=== PATIENT | male | born 1940 | race Caucasian/White ===

== ENCOUNTER 2016-11-19 07:40 | Emergency (ER) | payer OTHER ==
[~2016-11-19] VITALS: Ht 188 cm; Wt 106.7 kg
[~2016-11-19 07:40] MED LIST: AMIO200 PO; ASPI81 PO; CALC625 PO; DIFFCHW PO; LEVEMIR SQ; MULTTAB62 PO; NIAC250C6 PO; NOVOINJ3 SQ; PROS5TAB2 PO; PROT40TA PO; SIMV20 PO; SPIR25TA PO; TUMS500C PO; WARF2.5T40 PO; WARF5TAB PO; [UNRECOGNIZED DRUG - CODE] PO
[2016-11-19 07:42] VITALS: BP 147/70; PULSE 78; RESP 18; TEMP 98.1; O2SAT 97
[2016-11-19] MEDS ORDERED: CEPH-460 PO (08:00)
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
[2016-11-19] MEDS ORDERED: METO50TA11 PO (08:07)
[2016-11-19] MEDS ORDERED: SIMV20TA PO (08:07)
[2016-11-19] MEDS ORDERED: ASPI-110 PO (08:07)
[2016-11-19] MEDS ORDERED: PROS5TAB PO (08:07)
[2016-11-19] MEDS ORDERED: NOVORP2 SQ (08:07)
[2016-11-19] MEDS ORDERED: NOVONP2 SQ (08:07)
[2016-11-19] MEDS ORDERED: WARF-23 PO (08:07)
[2016-11-19] MEDS ORDERED: WARF-18 PO (08:07)
[2016-11-19] MEDS ORDERED: FISH1000 PO (08:07)
[2016-11-19] MEDS ORDERED: LISI2.5T3 PO (08:07)
[2016-11-19] MEDS ORDERED: GLIM4TAB PO (08:07)
== END 2016-11-19 08:19 | disposition home or self-care (01) ==
LOC: PHED 07:40
DX: S50.811A Abrasion of right forearm, initial encounter (principal); V49.49XA Driver injured in collision with other motor vehicles in traffic accident, initial encounter
CPT/HCPCS: 99282

== ENCOUNTER → 2017-08-01 | Outpatient (CLI) | payer OTHER ==
[~2017-08-01] VITALS: Ht 185.4 cm; Wt 174.0 kg
[~2017-08-01] MED LIST changes: -AMIO200 PO; +ASPI1TAB57 PO; -ASPI81 PO; -CALC625 PO; +CEPH-460 PO; +CHLORHEXIDINE GLUCONATE 2 % 1 PACK (2 CLOTHS) TOPICAL PRN; -DIFFCHW PO; +FISH1000 PO; +GLIM4TAB PO; +INSULIN HUMAN REGULAR 1,000 UNITS/10 ML VIAL SQ PRN; +LACTATED RINGER'S 1000 ML IV PRN; -LEVEMIR SQ; +LIDOCAINE HCL 1% PF 5 ML SYRINGE OTHER ONE; +LISI2.5T3 PO; +METO1TAB9 PO; +METOPROLOL TARTRATE 25 MG TAB PO PRN; -MULTTAB62 PO; -NIAC250C6 PO; -NOVOINJ3 SQ; +NOVONP2 SQ; +NOVORP2 SQ; +PHENYLEPH/NS 1000 MCG/10 ML SYR IV ONE; +POVIDONE IODINE 5% (ANTISEPSIS KIT) 4 APPLICATIONS EACH NARE PRN; +PROPOFOL 200 MG/20 ML AMP IV ONE; +PROS5TAB PO; -PROS5TAB2 PO; -PROT40TA PO; -SIMV20 PO; +SIMV20TA PO; +SODIUM CHLORID 0.9% 500 ML IV PRN; -SPIR25TA PO; -TUMS500C PO; +WARF-18 PO; +WARF-23 PO; -WARF2.5T40 PO; -WARF5TAB PO; -[UNRECOGNIZED DRUG - CODE] PO
--- NOTE | 2017-08-01 10:51 | PD.PROCEDR ---
GI Procedure PROCEDURE PERFORMED EGD with biopsy followed by colonoscopy INDICATION FOR PROCEDURE Guaiac positive stools PROCEDURE: The procedure, risks and benefits were discussed with Mr. Iglesias and informed consent was obtained. Anesthesia sedated him with Diprivan. He was placed in the left lateral decubitus position. EGD: The Pentax videoscope was introduced through the oropharynx and advanced to the second portion of the duodenum under direct visualization. Retroflexion was performed in the stomach. FINDINGS: The esophagus this was unremarkable and within normal limits The stomach there was patchy erythema noted in the fundus and the antrum superficial erosions noted in the fundus area with some heme noted biopsies were taken from the antrum for further evaluation The duodenum this was normal random biopsies were taken to rule out celiac as a cause for anemia Colonoscopy: The Pentax videoscope was introduced through the rectum and advanced to cecum where the ileocecal valve and appendiceal orifice were identified. Retroflexion was performed in the rectum. Colonic prep was good FINDINGS: Colonic withdrawal time greater than 6 minutes as the scope was slowly withdrawn colonic mucosa was carefully inspected the patient was noted to have a normal colonoscopy all the way through so as retroflexion and rectal examination ESTIMATED BLOOD LOSS: None SPECIMENS REMOVED: Gastric and duodenal biopsies COMPLICATIONS: None IMPRESSION: Gastritis Unremarkable colonoscopy PLAN: Await biopsies Follow-up in clinic in 3 weeks Colonoscopy in 10 years Miguelangel Soliz MD Aug 01, 2017 10:51
[2017-08-01 11:10] VITALS: BP 114/59; PULSE 90; RESP 16; TEMP 98.2; O2SAT 100
--- NOTE | 2017-08-02 09:38 | EKG ---
Date Performed: 08/01/2017 Time Performed: 08:24:33 PTAGE: 77 years EKG: Sinus rhythm WITH FIRST DEGREE AV BLOCK WITH OCCASIONAL SUPRAVENTRICULAR PREMATURE COMPLEXES RIGHT BUNDLE BRANCH BLOCK ABNORMAL ECG Since the prior tracing, there has been no significant change PREVIOUS TRACING : 03/31/2014 03.34 DOCTOR: Ashutosh Bruner Interpretating Date/Time 08/02/2017 09:36:31
== END ==
LOC: HSDC 07:25
PROVIDERS: ATTEND Internal Medicine Gastroenterology
DX: K92.1 Melena (principal); K29.70 Gastritis, unspecified, without bleeding; I44.0 Atrioventricular block, first degree; I45.10 Unspecified right bundle-branch block; K31.89 Other diseases of stomach and duodenum
CPT/HCPCS: 00813; 43239; 45378; 88305; 93005; J2370

== ENCOUNTER 2017-08-03 15:48 | Emergency (ER) | payer OTHER ==
[~2017-08-03] VITALS: Ht 185.4 cm; Wt 105.9 kg
[~2017-08-03 15:48] MED LIST changes: -CEPH-460 PO; -CHLORHEXIDINE GLUCONATE 2 % 1 PACK (2 CLOTHS) TOPICAL PRN; -INSULIN HUMAN REGULAR 1,000 UNITS/10 ML VIAL SQ PRN; -LACTATED RINGER'S 1000 ML IV PRN; -LIDOCAINE HCL 1% PF 5 ML SYRINGE OTHER ONE; -METOPROLOL TARTRATE 25 MG TAB PO PRN; -PHENYLEPH/NS 1000 MCG/10 ML SYR IV ONE; -POVIDONE IODINE 5% (ANTISEPSIS KIT) 4 APPLICATIONS EACH NARE PRN; -PROPOFOL 200 MG/20 ML AMP IV ONE; -SODIUM CHLORID 0.9% 500 ML IV PRN
[2017-08-03 15:52] VITALS: BP 125/62; PULSE 103; RESP 16; TEMP 99.2; O2SAT 96
[2017-08-03] MEDS ORDERED: SODIUM CHLORIDE 0.9% FLUSH 10 ML FLUSH IV FLUSH PRN (16:15)
--- NOTE | 2017-08-03 16:16 | PD ---
HPI Chief Complaint: Skin Problem Time Seen by Provider: 16:02 Travel History International Travel<30 days: No Contact w/Intl Traveler<30days: No Traveled to known affect area: No History of Present Illness HPI Patient is a 77-year-old male with a history of DVT on Coumadin presents emergency department for evaluation of redness and swelling to his left lower extremity. Patient states that his skin color is usually dark but has now has superimposed redness for the past few days. He is a diabetic and has peripheral neuropathy but denies any pain. Patient also has a callus on his left great toe which she states been there for a while and he is following with a behavioral therapist at the [facility]. He denies any trauma states his been taking his medications as prescribed, denies any shortness of breath. States symptoms for the past few days, gradually worsening, associated signs and symptoms and contacts as above. PFSH Past Medical History Hx Anticoagulant Therapy: Yes Arthritis: Yes Blood Disorders: No Cancer: No Cardiovascular Problems: Yes (PACER/DEFIB) High Cholesterol: Yes Diabetes: Yes Patient Takes Glucophage: No Diminished Hearing: Yes ([place] BILAT) Deep Vein Thrombosis: Yes Endocrine: Yes Gastrointestinal Disorders: Yes (BLOOD IN STOOL) Glaucoma: No Genitourinary: No Hepatitis: No Hiatal Hernia: No Hypertension: Yes Immune Disorder: No Implanted Vascular Access Dvce: Yes Musculoskeletal: Yes (OA) Neurologic: No Psychiatric: No Reproductive: No Respiratory: No Myocardial Infarction: No Thyroid Disease: No Tetanus Vaccination: > 5 Years Influenza Vaccination: Yes Past Surgical History Abdominal Surgery: Yes (REPAIR UMBILICAL HERNIA WITH MESH) AICD: No Body Medical Devices: PLATE AND SCREWS LEFT ANKLE; MESH UMBILICAL HERNIA Cardiac Surgery: Yes (PM/defib.) Ear Surgery: No Endocrine Surgery: No Eye Surgery: Yes (ANNETTE. CATARACT EXTRACT.) Genitourinary Surgery: No Joint Replacement: Yes (LEFT KNEE) Oral Surgery: No Pacemaker: No Thoracic Surgery: No Other Surgery: Yes (ABCESS REMOVAL IN BUTTOCKS/SCROTUM AREA) Social History Alcohol Use: No Tobacco Use: No (QUIT IN 1961) Substance Use: No Allergies-Medications (Allergen,Severity, Reaction): Coded Allergies: No Known Allergies (Unverified , 08/03/17) Reported Meds & Prescriptions Reported Meds & Active Scripts Active Keflex (Cephalexin) 500 Mg Capsule 500 Mg PO Q6H 7 Days Reported Warfarin 5 Mg Tab 5 Mg PO SA,HUGHES, T, TH Warfarin 2.5 Mg Tab 2.5 Mg PO M,W,F Fish Oil (Malcolm-3 Fatty Acids) 1,000 Mg Cap 1 Tab PO DAILY Glimepiride 4 Mg Tab 4 Mg PO DAILY Take with breakfast or first main meal Lisinopril 2.5 Mg Tab 2.5 Mg PO DAILY Proscar (Finasteride) 5 Mg Tab 5 Mg PO DAILY Do not crush. Metoprolol Succinate ER 24 HR (Metoprolol Succinate) 50 Mg Tab 50 Mg PO DAILY Aspirin 81 (Aspirin) 81 Mg Tabdr 81 Mg PO DAILY Novolin R Inj (Insulin Human Regular) 1,000 Unit/10 Ml Vial 5-25 Units SQ ACHS Max dose at bedtime:( )units; sugars less than 70,(0) units; sugars 150-199,(5)unit; sugars 200-249,(10)units; sugars 250-299,(15) units; sugars 300-349,(20)units; sugars greater than 349,(25)units Novolin N Inj (Insulin Human NPH) 1,000 Unit/10 Ml Vial 35 Units SQ BID Simvastatin 20 Mg Tab 20 Mg PO DAILY Review of Systems Except as stated in HPI: all other systems reviewed are Neg Physical Exam Narrative GENERAL: Well-developed well-nourished, no obvious distress. Quite pleasant. SKIN: Focused skin assessment warm/dry. There is a fair amount of swelling and erythema to left lower extremity over the anterior tibia nearly circumferential. Difficult to completely ascertain where the cellulitis borders are as the patient does have some underlying darkening skin likely from chronic venous stasis. HEAD: Atraumatic. Normocephalic. EYES: Pupils equal and round. No scleral icterus. No injection or drainage. ENT: No nasal bleeding or discharge. Mucous membranes pink and moist. NECK: Trachea midline. No JVD. CARDIOVASCULAR: Regular rate and rhythm. No murmur appreciated. 2+ bilateral equal pulses felt in all 4 extremities. Pulses are equal in the DP and PT bilateral lower extremities. Signs of adequate perfusion RESPIRATORY: No accessory muscle use. Clear to auscultation. Breath sounds equal bilaterally. GASTROINTESTINAL: Abdomen soft, non-tender, nondistended. Hepatic and splenic margins not palpable. MUSCULOSKELETAL: No obvious deformities. No clubbing. No cyanosis. No edema. NEUROLOGICAL: Awake and alert. No obvious cranial nerve deficits. Motor grossly within normal limits. Normal speech. PSYCHIATRIC: Appropriate mood and affect; insight and judgment normal. Data Data Last Documented VS Vital Signs Date Time Temp Pulse Resp B/P (MAP) Pulse Ox O2 Delivery O2 Flow Rate FiO2 08/03/17 18:45 08/03/17 18:20 82 18 98 Room Air 08/03/17 15:52 99.2 Orders Orders Basic Metabolic Panel (Bmp) (08/03/17 16:15) Complete Blood Count With Diff (08/03/17 16:15) Prothrombin Time / Inr (Pt) (08/03/17 16:15) Act Partial Throm Time (Ptt) (08/03/17 16:15) Iv Access Insert/Monitor (08/03/17 16:15) Ecg Monitoring (08/03/17 16:15) Oximetry (08/03/17 16:15) Sodium Chloride 0.9% Flush (Ns Flush) (08/03/17 16:15) Us Leg Venous Doppler (08/03/17 16:15) Ed Discharge Order (08/03/17 18:36) Labs Laboratory Tests Test 08/03/17 16:38 White Blood Count 9.2 TH/MM3 Red Blood Count 3.74 MIL/MM3 Hemoglobin 11.5 GM/DL Hematocrit 34.8 % Mean Corpuscular Volume 92.9 FL Mean Corpuscular Hemoglobin 30.6 PG Mean Corpuscular Hemoglobin Concent 33.0 % Red Cell Distribution Width 12.1 % Platelet Count 180 TH/MM3 Mean Platelet Volume 7.4 FL Neutrophils (%) (Auto) 74.2 % Lymphocytes (%) (Auto) 15.4 % Monocytes (%) (Auto) 7.6 % Eosinophils (%) (Auto) 2.5 % Basophils (%) (Auto) 0.3 % Neutrophils # (Auto) 6.9 TH/MM3 Lymphocytes # (Auto) 1.4 TH/MM3 Monocytes # (Auto) 0.7 TH/MM3 Eosinophils # (Auto) 0.2 TH/MM3 Basophils # (Auto) 0.0 TH/MM3 CBC Comment DIFF FINAL Differential Comment Prothrombin Time 13.7 SEC Prothromb Time International Ratio 1.4 RATIO Activated Partial Thromboplast Time 31.3 SEC Blood Urea Nitrogen 31 MG/DL Creatinine 2.00 MG/DL Random Glucose 384 MG/DL Calcium Level 8.4 MG/DL Sodium Level 131 MEQ/L Potassium Level 4.7 MEQ/L Chloride Level 97 MEQ/L Carbon Dioxide Level 25.7 MEQ/L Anion Gap 8 MEQ/L Estimat Glomerular Filtration Rate 32 ML/MIN MDM Medical Decision Making Medical Screen Exam Complete: Yes Emergency Medical Condition: Yes Differential Diagnosis DVT, cellulitis, sepsis unlikely, osteomyelitis sick highly unlikely. Narrative Course Patient was roomed in the emergency department, he appears well and in no obvious distress, basic labs are reassuring. On further history the patient recently stopped his Coumadin to have a colonoscopy, this was resumed 2 days ago. He is subtherapeutic on his Coumadin his INR is only 1.4. I think that there is some chronic venous stasis here with superimposed cellulitis which is fairly mild. Patient had an ultrasound of his lower extremity which does show superficial thrombosis without any DVT. At this time I think the patient should continue his Coumadin as previously prescribed and should have a repeat INR within the next few days. Discussed that if he is continue to have swelling in a week that he should have a repeat ultrasound to exclude propagation of his DVT. Any shortness of breath should prompt return to the ER. Discussed that he should follow-up with Dr. Stock Sunday morning in 2 days at least by phone. He verbalized understanding and agreement. Will place on empiric antibiotics. He is stable for discharge Diagnosis Primary Impression: Superficial thrombosis of leg Qualified Codes: I82.812 - Embolism and thrombosis of superficial veins of left lower extremity Additional Instructions: Take your Coumadin as previously prescribed, call Dr. Stock's office on Sunday. If you have increased swelling or any shortness of breath return to the emergency department immediately. I also recommend that you have a repeat ultrasound in 1 week. This is to ensure that the blood clot has not spread. Med/Other Pt SpecificInfo: Prescription(s) given Scripts Cephalexin (Keflex) 500 Mg Capsule 500 MG PO Q6H for Infection for 7 Days, #28 CAP 0 Refills Prov: Pacheco Stratton MD 08/03/17 Disposition: 01 DISCHARGE HOME Condition: Stable Pacheco Stratton MD Aug 03, 2017 16:16
[2017-08-03 16:41] LABS: AUTOMATED NEUTROPHIL # 6.9 TH/MM3 (1.8-7.7); BASOPHIL % 0.3 % (0.0-2.0); EOSINOPHIL # 0.2 TH/MM3 (0-0.4); EOSINOPHIL % 2.5 % (0.0-4.0); HEMATOCRIT 34.8 % (39.0-51.0); HEMOGLOBIN 11.5 GM/DL (13.0-17.0); LYMPH % 15.4 % (9.0-44.0); LYMPHOCYTE # 1.4 TH/MM3 (1.0-4.8); MEAN CELL VOLUME 92.9 FL (80.0-100.0); MEAN CORPUSCULAR HEMOGLOBIN 30.6 PG (27.0-34.0); MEAN PLATELET VOLUME 7.4 FL (7.0-11.0); MONO % 7.6 % (0.0-8.0); MONOCYTE # 0.7 TH/MM3 (0-0.9); NEUT % 74.2 % (16.0-70.0); PLATELET COUNT 180 TH/MM3 (150-450); RED BLOOD COUNT 3.74 MIL/MM3 (4.50-5.90); RED CELL DISTRIBUTION WIDTH 12.1 % (11.6-17.2); WHITE BLOOD COUNT 9.2 TH/MM3 (4.0-11.0)
[2017-08-03 16:52] LABS: BICARBONATE 25.7 MEQ/L (21.0-32.0); CALCIUM 8.4 MG/DL (8.5-10.1)
[2017-08-03 16:55] LABS: INTERNATIONAL NORMALIZED RATIO 1.4 RATIO; PROTHROMBIN TIME - PATIENT 13.7 SEC (9.8-11.6)
[2017-08-03 17:05] VITALS: BP 95/57; PULSE 90; RESP 18; O2SAT 98
--- NOTE | 2017-08-03 18:19 | RADRPT ---
EXAM DATE/TIME: 08/03/2017 17:53 [facility] COMPARISON: No previous studies available for comparison. INDICATIONS : Left leg swelling and redness in calf. MEDICAL HISTORY : Hypertension. Hypercholesterolemia. Hearing problems. Dentures. Atrial fibr illation. Deep vein thrombosis. BPH. Arthritis. Diabetes. C-diff. SURGICAL HISTORY : Pacemaker. Umbilical hernia repair. Bilateral cataract surgery. Left knee re placement. Abscess removal from buttocks/scrotum area. ENCOUNTER: Initial ACUITY: 2 day PAIN SCORE: 0/10 LOCATION: Left leg. TECHNIQUE: Venous ultrasound of the leg was performed from the inguinal ligament to the proximal calf. Real-time, color Doppler and spectral tracing, compression and augmentation techniques were us ed. FINDINGS: There is normal compressibility of the deep venous system from the inguinal region to the proximal ca lf. No echogenic clot is seen in the lumen of the common femoral, femoral, popliteal, and posterior tibial veins. There is a normal response of the venous system to proximal and distal augmentation an d respiration. Nonocclusive thrombus is noted within the left lesser saphenous vein in the distal salud f. CONCLUSION: No evidence of deep venous thrombosis within the left lower extremity. Nonocclusive t hrombus within the left lesser saphenous vein in the distal calf. Pacheco Renteria MD on August 03, 2017 at 18:17 Board Certified Radiologist. This report was verified electronically.
[2017-08-03 18:20] VITALS: BP 122/58; PULSE 82; RESP 18; O2SAT 98
[2017-08-03] MEDS ORDERED: CEPH-460 PO (18:39)
== END 2017-08-03 18:45 | disposition home or self-care (01) ==
LOC: PHED 15:48
DX: I82.812 Embolism and thrombosis of superficial veins of left lower extremity (principal); E11.9 Type 2 diabetes mellitus without complications; E78.00 Pure hypercholesterolemia, unspecified; I10 Essential (primary) hypertension; Z79.01 Long term (current) use of anticoagulants; Z79.4 Long term (current) use of insulin; Z87.891 Personal history of nicotine dependence
CPT/HCPCS: 80048; 85025; 85610; 85730; 93971; 99284